=== PATIENT | female | born 1945 | race Caucasian/White ===

== ENCOUNTER 2022-08-01 13:30 | Inpatient (IN) ==
[2022-08-01] MEDS ORDERED: Ondansetron ODT 4 MG TAB.RAPDIS SL PRN (14:58)
[2022-08-01] MEDS ORDERED: Haloperidol Lactate 5 MG/ML VIAL IM PRN (14:58)
[2022-08-01] MEDS ORDERED: Haloperidol Oral Conc 10 MG/5 ML UDC PO PRN (14:58)
[2022-08-01] MEDS: traZODone 50 MG TABLET PO PRN (21:29)
[2022-08-01] MEDS: Lithium Carbonate ER 450 MG TABLET.ER PO SCH (21:29)
[2022-08-01] MEDS: Melatonin 3 MG TABLET PO SCH (21:29)
[2022-08-01] MEDS: Cefdinir 300 MG CAPSULE PO SCH (21:30)
[2022-08-02] MEDS: *HR* Enoxaparin 40 MG/0.4 ML SYRINGE SQ SCH (06:32)
[2022-08-02] MEDS ORDERED: amLODIPine 5 MG TABLET PO SCH ×2 (07:45→09:00)
[2022-08-02] MEDS: Cefdinir 300 MG CAPSULE PO SCH (08:18)
[2022-08-02] MEDS: amLODIPine 5 MG TABLET PO SCH (08:18)
[2022-08-02] MEDS: Multivit/Ca/Min/Fe/FA 1 TAB TABLET PO SCH (08:18)
[2022-08-02 08:50] LABS: Basophils % 0.4 %; Eosinophils # 0.3 K/mcL (0.0-0.6); Eosinophils % 3.1 %; Hematocrit 39.8 % (35.3-44.9); Hemoglobin 13.1 g/dL (11.5-15.4); Immature Granulocytes % 0.4 % (0-4); Lymphocytes % 12.8 %; Mean Corpuscular HGB Conc 32.9 g/dL (31.6-35.5); Mean Corpuscular Hemoglobin 29.6 pg (28.0-33.3); Mean Platelet Volume 11.1 fL (9.4-12.4); Monocytes # 0.9 K/mcL (0.0-1.3); Monocytes % 11.2 %; Neutrophils # 5.8 K/mcL (1.6-8.9); Platelet Count 282 K/mcL (140-400); Red Blood Count 4.42 M/mcL (3.82-4.97); Red Cell Distribution Width 12.5 % (11.5-14.5); Segmented Neutrophils % 72.1 %
[2022-08-02] MEDS ORDERED: Lithium Carbonate ER 450 MG TABLET.ER PO SCH (09:00)
[2022-08-02 09:02] LABS: Calcium 9.1 mg/dL (8.6-10.3); Potassium 3.8 mEq/L (3.5-5.1)
[2022-08-02] MEDS: Benzonatate 100 MG CAPSULE PO PRN ×2 (13:55→21:39)
[2022-08-02] MEDS: Lithium Carbonate ER 450 MG TABLET.ER PO SCH (21:38)
[2022-08-02] MEDS: Melatonin 3 MG TABLET PO SCH (21:38)
[2022-08-02] MEDS: traZODone 50 MG TABLET PO PRN (22:00)
[2022-08-03] MEDS: *HR* Enoxaparin 40 MG/0.4 ML SYRINGE SQ SCH (05:19)
[2022-08-03] MEDS: amLODIPine 5 MG TABLET PO SCH (07:54)
[2022-08-03] MEDS: Multivit/Ca/Min/Fe/FA 1 TAB TABLET PO SCH (07:54)
[2022-08-03] MEDS ORDERED: *HR* Metoprolol 5 MG/5 ML VIAL IVP PRN (08:58)
[2022-08-03] MEDS: Lithium Carbonate ER 450 MG TABLET.ER PO SCH (21:38)
[2022-08-03] MEDS: traZODone 50 MG TABLET PO PRN (21:38)
[2022-08-03] MEDS: Melatonin 3 MG TABLET PO SCH (21:38)
[2022-08-03 23:38] VITALS: O2SAT 96
[2022-08-04] MEDS: *HR* Enoxaparin 40 MG/0.4 ML SYRINGE SQ SCH (05:56)
[2022-08-04 06:40] VITALS: BP 149/81; PULSE 69; RESP 15; TEMP 98.3
[2022-08-04] MEDS: amLODIPine 5 MG TABLET PO SCH (08:22)
[2022-08-04] MEDS: Benzonatate 100 MG CAPSULE PO PRN (08:22)
[2022-08-04] MEDS: Multivit/Ca/Min/Fe/FA 1 TAB TABLET PO SCH (08:22)
== END 2022-08-04 14:36 | disposition home or self-care (01) | DRG 885 ==
LOC: INPPIK 19:27
PROVIDERS: ADMIT Internal Medicine; ATTEND Internal Medicine